=== PATIENT | male | born 1990 | race Caucasian/White ===

== ENCOUNTER 2017-07-07 20:35 | Emergency (ER) | payer OTHER ==
[2017-07-07 20:43] VITALS: BP 115/68; PULSE 67; RESP 16; TEMP 98; O2SAT 99
--- NOTE | 2017-07-07 21:07 | ED PDOC ---
HPI: Wound Care - HPI Time Seen by Provider: 07/07/17 20:44 Chief Complaint (Nursing): Wound Check Chief Complaint (Provider): Postoperative bleeding History Per: Patient Exam Limitations: no limitations Onset/Duration Of Symptoms: Hrs (1 hr prior to arrival) Current Symptoms Are (Timing): Gone Now Additional Complaint(s): Pasquale is a 26 y/o male who is s/p circumcision today at [facility] [place]. One hour ago, bleeding began at the incision site and he called EMS because he became lightheaded and diaphoretic after seeing the blood. Patient is able to urinate without difficulty. No other medical complaints. PMD: Unknown Past Medical History Reviewed: Historical Data, Nursing Documentation, Vital Signs Vital Signs: Last Vital Signs Temp 98 F 07/07/17 20:40 Pulse 67 07/07/17 20:40 Resp 16 07/07/17 20:40 BP 115/68 07/07/17 20:40 Pulse Ox 99 07/07/17 20:40 - Medical History PMH: No Chronic Diseases - Surgical History Other surgeries: Circumcision - Family History Family History: States: Unknown Family Hx - Allergies Allergies/Adverse Reactions: Allergies Allergy/AdvReac Type Severity Reaction Status Date / Time No Known Allergies Allergy Verified 07/07/17 20:56 Review of Systems ROS Statement: Except As Marked, All Systems Reviewed And Found Negative Genitourinary Male: Positive for: Other (Bleeding from incision site). Negative for: Dysuria, Frequency, Incontinence Physical Exam - Reviewed Nursing Documentation Reviewed: Yes Vital Signs Reviewed: Yes - Physical Exam Appears: Positive for: Well, Non-toxic, No Acute Distress Head Exam: Positive for: ATRAUMATIC, NORMAL INSPECTION, NORMOCEPHALIC Skin: Positive for: Normal Color, Warm, Dry Eye Exam: Positive for: EOMI, Normal appearance, PERRL Male Genital Exam: Positive for: other (Swelling and edema of the penis, sensation intact. Subcutaneous sutures in place. No active bleeding.) Neurologic/Psych: Positive for: Alert, Oriented - ECG O2 Sat by Pulse Oximetry: 99 (RA) Pulse Ox Interpretation: Normal Medical Decision Making Medical Decision Making: Impression: Resolved post-operative bleeding Time: 20:59 --Patient is medically stable and ready for discharge --Patient will call surgeon Dr. Roberts office tomorrow to schedule follow up appointment Scribe Attestation: Documented by Naheed Trujillo, acting as a scribe for Daniel Daily MD Provider Scribe Attestation: All medical record entries made by the Scribe were at my direction and personally dictated by me. I have reviewed the chart and agree that the record accurately reflects my personal performance of the history, physical exam, medical decision making, and the department course for this patient. I have also personally directed, reviewed, and agree with the discharge instructions and disposition. Disposition - Clinical Impression Clinical Impression: Encounter for postoperative wound check - Disposition Referrals: Akash Goncalves MD [Medical Doctor] - Disposition: Routine/Home Disposition Time: 21:10 Condition: IMPROVED Instructions: Postoperative Bleeding (ED) Forms: [employer] ([place])
== END 2017-07-07 21:10 | disposition home or self-care (01) ==
LOC: H.ER 20:35
DX: Z48.01 Encounter for change or removal of surgical wound dressing (principal)